=== PATIENT | female | born 1995 | race Caucasian/White ===

== ENCOUNTER 2020-05-03 12:22 | Emergency (ER) | payer MEDICAID ==
--- NOTE | 2020-05-03 12:49 | ED Physician Documentation ---
PD HPI ABD PAIN - Stated complaint Stated Complaint: ABD PX - Chief complaint Chief Complaint: Abd Pain - History obtained from History obtained from: Patient - History of Present Illness Timing - onset: Yesterday Timing - duration: Days (2) Timing - details: Gradual onset Pain level max: 8 Pain level now: 0 Quality: Cramping Location: All over / everywhere Radiation: No: Chest, , Lower back, Left flank, Left shoulder, Right flank, Right shoulder, Upper back Improved by: No: Eating, Laying still, Vomiting, BM, Position, Meds Worsened by: No: Eating, Moving, Breathing, Position, Palpation Associated symptoms: Diarrhea (states large amount of diarrhea). No: Fever, Nausea, Vomiting, Hematemesis, Constipation, Melena, Hematochezia, Dysuria, Amaury turia, Chest pain, Dizzy, Vaginal bleeding, Vaginal dc Recently seen: Emergency Dept - Additional information Additional information: LMP 3 weeks ago. Abdominal pain is intermittent, crampy. Lasts for about 5 to 10 seconds at a time. She states it feels like labor contractions. No recent travel. No recent antibiotics. No fevers. No chills. No blood in the stool. Review of Systems Constitutional: denies: Fever, Chills Throat: denies: Sore throat Respiratory: denies: Cough GI: reports: Diarrhea. denies: Abdominal Swelling, Nausea, Vomiting : denies: Dysuria, Now EGA Skin: denies: Rash Musculoskeletal: denies: Neck pain, Back pain Neurologic: denies: Headache PD PAST MEDICAL HISTORY - Past Medical History Past Medical History: No - Past Surgical History Past Surgical History: Yes /REIMBURSEMENT SPEC: section - Present Medications Home Medications: Ambulatory Orders Medication Instructions Recorded Confirmed Hyoscyamine Sulfate [Levsin-Sl] 0.125 mg SL Q6H PRN #20 tab.subl 05/03/20 Norelgestromin/Ethin.estradiol 1 patch TOP [place] 05/03/20 05/03/20 [Xulane Patch] - Allergies Allergies/Adverse Reactions: Allergies Allergy/AdvReac Type Severity Reaction Status Date / Time No Known Drug Allergies Allergy Verified 05/03/20 13:14 - Living Situation Living Situation: reports: With family Living Arrangement: reports: At home - Social History Does the pt have substance abuse?: No PD ED PE NORMAL - Vitals Vital signs reviewed: Yes - General General: Alert and oriented X 3, No acute distress, Well developed/nourished - HEENT HEENT: Moist mucous membranes - Neck Neck: Supple, no meningeal sign - Cardiac Cardiac: RRR, Strong equal pulses - Respiratory Respiratory: No respiratory distress, Clear bilaterally - Abdomen Abdomen: Normal bowel sounds, Soft, Non tender, Non distended - Back Back: No CVA TTP - Derm Derm: Warm and dry, No rash - Extremities Extremities: No edema - Neuro Neuro: Alert and oriented X 3 - Psych Psych: Normal mood, Normal affect Results - Vitals Vitals: Vital Signs - 24 hr 05/03/20 05/03/20 12:37 14:45 Temperature 36.4 C L Heart Rate 83 82 Respiratory 16 18 Rate Blood Pressure 121/60 115/59 L O2 Saturation 99 100 Oxygen O2 Source Room air - Labs Labs: Laboratory Tests 05/03/20 05/03/20 05/03/20 12:25 13:48 13:48 WBC 8.7 RBC 4.29 Hgb 12.7 Hct 38.2 MCV 89.0 MCH 29.6 MCHC 33.2 RDW 12.8 Plt Count 295 MPV 9.7 Neut # (Auto) 5.9 Lymph # (Auto) 2.0 [place] # (Auto) 0.6 Eos # (Auto) 0.1 Baso # (Auto) 0.0 Absolute Nucleated RBC 0.00 Nucleated RBC % 0.0 Sodium 134 L Potassium 3.8 Chloride 102 Carbon Dioxide 21 Anion Gap 11.0 BUN 8 Creatinine 0.6 Estimated GFR (MDRD) 122 Glucose 88 Calcium 8.5 Total Bilirubin 0.8 AST 15 ALT 14 Alkaline Phosphatase 79 Total Protein 7.1 Albumin 3.8 Globulin 3.3 Albumin/Globulin Ratio 1.2 Lipase 20 L Urine Color YELLOW Urine Clarity CLEAR Urine pH 6.0 Ur Specific [place] 1.020 Urine Protein NEGATIVE Urine Glucose (UA) NEGATIVE Urine Ketones NEGATIVE Urine Occult Blood NEGATIVE Urine Nitrite NEGATIVE Urine Bilirubin NEGATIVE Urine Urobilinogen 0.2 (NORMAL) Ur Leukocyte Esterase NEGATIVE Ur Microscopic Review NOT INDICATED Urine Culture Comments NOT INDICATED Urine HCG, Qual NEGATIVE PD MEDICAL DECISION MAKING - ED course Complexity details: reviewed results, re-evaluated patient, considered differential, d/w patient ED course: Patient is well-appearing, nontoxic. Afebrile. Tolerating p.o. without difficulty. Feels better after Levsin. Likely viral diarrhea with abdominal cramping. No evidence of perforation, abscess, diverticulitis. No evidence of condition that would require antibiotics. No indication for CT scan at this time. Patient counseled regarding signs and symptoms for which I believe and urgent re-evaluation would be necessary. Patient with good understanding of and agreement to plan and is comfortable going home at this time This document was made in part using voice recognition software. While efforts are made to proofread this document, sound alike and grammatical errors may occur. Departure - Departure Disposition: 01 Home, Self Care Clinical Impression: Abdominal cramping, Viral diarrhea Abdominal pain Qualifiers: Abdominal location: generalized Qualified Code(s): R10.84 - Generalized abdominal pain Condition: Good Instructions: ED Abdominal Pain Unkn Cause, ED Diarrhea Viral Follow-Up: Bailey Cain MD [Primary Care Provider] - Within 1 week Prescriptions: Hyoscyamine Sulfate [Levsin-Sl] 0.125 mg SL Q6H PRN #20 tab.subl PRN Reason: Abdominal Pain Comments: This should improve over the next 24 to 48 hours. Return if you worsen. Make sure you are drinking plenty of water. Your laboratory testing does not show any acute abnormalities. The cramping is likely secondary to inflammation in your intestines. This is likely causing the diarrhea as well. Discharge Date/Time: 05/03/20 14:51
[2020-05-03 12:55] LABS: BILIRUBIN,URINE NEGATIVE (NEGATIVE); GLUCOSE, URINE (UA) NEGATIVE (NEGATIVE); KETONES,URINE (UA) NEGATIVE (NEGATIVE); LEUKOCYTE ESTERASE, URINE NEGATIVE (NEGATIVE); NITRITE,URINE NEGATIVE (NEGATIVE); OCCULT BLOOD,URINE NEGATIVE (NEGATIVE); PROTEIN,URINE NEGATIVE (NEGATIVE); UROBILINOGEN,URINE 0.2 (NORMAL) E.U./dL (NORMAL)
[2020-05-03 12:57] LABS: CLARITY,URINE CLEAR (CLEAR); HCG UR QUAL NEGATIVE
[2020-05-03 13:53] LABS: BASOPHILS % (AUTO) 0.2 %; EOSINOPHILS # (AUTO) 0.1 10^3/uL (0.0-0.7); EOSINOPHILS % (AUTO) 1.3 %; HGB - HEMOGLOBIN 12.7 g/dL (12.0-16.0); LYMPHOCYTES % (AUTO) 23.3 %; MEAN CORPUSCULAR HEMOGLOBIN 29.6 pg (27.0-31.0); MEAN CORPUSCULAR HGB CONC 33.2 g/dL (32.0-36.0); MEAN PLATELET VOLUME 9.7 fL (7.9-10.8); MONOCYTES # (AUTO) 0.6 10^3/uL (0.0-1.0); MONOCYTES % (AUTO) 6.7 %; NEUTROPHILS # (AUTO) 5.9 10^3/uL (1.5-6.6); NEUTROPHILS % (AUTO) 68.2 %; PLT - PLATELET COUNT 295 10^3/uL (130-450); RED BLOOD COUNT 4.29 10^6/uL (4.20-5.40); RED CELL DISTRIBUTION WIDTH 12.8 % (12.0-15.0); WHITE BLOOD COUNT 8.7 x10^3/uL (4.8-10.8)
[2020-05-03 14:13] LABS: ALBUMIN 3.8 g/dL (3.2-5.5); ALBUMIN/GLOBULIN RATIO 1.2 (1.0-2.2); BILIRUBIN,TOTAL 0.8 mg/dL (0.2-1.0); CALCIUM 8.5 mg/dL (8.5-10.3); CREATININE 0.6 mg/dL (0.4-1.0); TOTAL PROTEIN 7.1 g/dL (6.7-8.2)
[2020-05-03] MEDS ORDERED: HYOSCYAMINE SL 0.125 MG TABLET SL STA (14:31)
[2020-05-03 14:46] VITALS: BP 115/59
== END 2020-05-03 14:51 | disposition home or self-care (01) ==
LOC: ED 12:22
DX: A08.4 Viral intestinal infection, unspecified (principal); R10.84 Generalized abdominal pain
CPT/HCPCS: 36415; 80053; 81003; 81025; 83690; 85025; 99283; 99284; A9270; 81001; 87086